=== PATIENT | female | born 1955 | race Caucasian/White ===

== ENCOUNTER 2019-02-14 12:55 | Inpatient (IN) | payer OTHER ==
[2019-02-14] MEDS ORDERED: VANCOMYCIN HCL/NORMAL SALINE 250 ML IV ONE (13:25)
--- NOTE | 2019-02-14 13:29 | EDPHY ---
H & P Stated Complaint: r foot ulcer that is ?infected Time Seen by Provider: 02/14/19 13:06 HPI/ROS: CHIEF COMPLAINT: Right foot infection HISTORY OF PRESENT ILLNESS: 63-year-old female presents with a right foot infection. 5 weeks ago, she sustained a pressure sore on her right foot related to her shoes. Onset foot infection soon after. She has tried multiple antibiotics and has developed allergic reactions to the antibiotics including Keflex, clindamycin and Bactroban. She is also allergic to Bactrim. The allergic reactions consist of hives, no swelling or other symptoms. Associated with severe pain in the right foot. No fever or chills. No drainage from the open wound. Scheduled to see a wound care provider tomorrow. Tetanus is up-to- date. REVIEW OF SYSTEMS: complete 10 point ROS reviewed and is negative except for the noted elements in the HPI - Personal History Current Tetanus Diphtheria and Acellular Pertussis (TDAP): Unsure - Medical/Surgical History Hx Asthma: No Hx Chronic Respiratory Disease: No Hx Diabetes: No Hx Cardiac Disease: No Hx Renal Disease: No Hx Cirrhosis: No Hx Alcoholism: No Hx HIV/AIDS: No Hx Splenectomy or Spleen Trauma: No Other PMH: r knee surg - Social History Smoking Status: Never smoked - Physical Exam Exam: General Appearance: Alert, pleasant and talkative Eyes: Pupils equal and round, no conjunctival pallor or injection ENT, Mouth: Mucous membranes moist Neck: Normal inspection Respiratory: Lungs are clear to auscultation Cardiovascular: Regular rate and rhythm Gastrointestinal: Abdomen is soft and nontender Neurological: A&O, nonfocal, normal gait Skin: Warm and dry Extremities: Right foot-1 cm open wound on the lateral aspect of the foot over the 5th metatarsal with surrounding erythema warmth and tenderness along the lateral aspect of the foot, does not extend up to the ankle Psychiatric: Mood and affect normal Constitutional: Initial Vital Signs Temperature (C) 36.7 C 02/14/19 13:02 Heart Rate 129 H 02/14/19 13:02 Respiratory Rate 17 02/14/19 13:02 Blood Pressure 204/129 H 02/14/19 13:02 O2 Sat (%) 96 02/14/19 13:02 Allergies/Adverse Reactions: cephalexin Allergy (Mild, Verified 02/14/19 14:12) Rash clindamycin Allergy (Mild, Verified 02/14/19 14:12) Rash bacitracin Allergy (Unknown, Verified 02/14/19 14:12) Hives codeine [Codeine] Allergy (Unknown, Verified 02/14/19 14:12) Hives diphenhydramine HCl [From Benadryl] Allergy (Unknown, Verified 02/14/19 14:12) Hives morphine [Morphine] Allergy (Unknown, Verified 02/14/19 14:12) Hives paroxetine HCl [From Paxil] Allergy (Unknown, Verified 02/14/19 14:12) Hives ranitidine HCl [From Zantac] Allergy (Unknown, Verified 02/14/19 14:12) Hives Sulfa (Sulfonamide Antibiotics) Allergy (Unknown, Verified 02/14/19 14:12) Hives Home Medications: Medication Instructions Recorded NK [No Known Home Meds] 02/14/19 Medical Decision Making - Diagnostics Imaging Results: Imaging Impressions Foot X-Ray 02/14/19 13:29 Impression: Mild degenerative change right foot. Possible 3-mm radiopaque foreign body or calcification at the plantar aspect of the foot. ED Course/Re-evaluation: This pt presents with a persistent rt foot cellulitis, severe pain and multiple (possible) allergic rxns to abx. Will admit pt for IV Vancomycin and wound care. She does not meet SIRS criteria and initial lactate is normal. Xray reveals a possible FB foot, though not in location of wound/cellulitis. The hospitalist service was consulted for admission. Differential Diagnosis: includes though not limited to osteomyelitis, abscess, retained FB, fracture - Data Points Medications Given: Discontinued Medications Vancomycin/Sodium Chloride (Vancomycin 1 Gm (Premix)) 250 mls @ 250 mls/hr IV EDNOW ONE PRN Reason: Protocol Stop: 02/14/19 14:24 Last Admin: 02/14/19 14:40 Dose: 250 mls Departure - Departure Disposition: [facility] Acute Clinical Impression: Cellulitis Qualifiers: Site of cellulitis: extremity Site of cellulitis of extremity: lower extremity Laterality: right Qualified Code(s): L03.115 - Cellulitis of right lower limb Condition: Good
[2019-02-14] MEDS ORDERED: ONDANSETRON 4 MG/2 ML VIAL IVP PRN (13:50)
[2019-02-14] MEDS ORDERED: ONDANSETRON DISINTEGRATING 4 MG TAB PO PRN (13:50)
[2019-02-14] MEDS ORDERED: HYDROmorphONE/DILAUDID 1 MG/ML INJ IVP PRN (13:50)
[2019-02-14] MEDS ORDERED: ACETAMINOPHEN 325 MG TAB PO PRN (13:50)
--- NOTE | 2019-02-14 13:53 | PDGENHP ---
History and Physical - Chief Complaint right foot non-healing wound - History of Present Illness 63yo F without known medical problems presents with non-healing right foot wound. Initially developed about 5 weeks ago due to improperly fitting shoes. She noticed a pressure sore at that time. She then noticed some redness start to develop around the wound. She went to urgent care who prescribed keflex. She took this for 4 days but noticed a "rash" on her right foot so stopped taking it. She again went to urgent care who then prescribed clindamycin. She took this for 6 days but then noticed a rash developing on both of her feet and arms so she stopped. This was about a week ago. She comes to the ED today because her foot has been persistently red and it is very painful. She has not noticed any drainage. No fevers or chills. It is very painful. She is being admitted for IV antibiotics and wound care. Case discussed with ED physician Stefani Hightower. I reviewed labs from 02/09/2019. Normal CBC, BMP, LFTs, and TSH. LDL 102. A1c 6.1 %. History Information - Allergies/Home Medication List Allergies/Adverse Reactions: codeine [Codeine] Allergy (Unknown, Verified 02/14/19 12:57) diphenhydramine HCl [From Benadryl] Allergy (Unknown, Verified 02/14/19 12:57) morphine [Morphine] Allergy (Unknown, Verified 02/14/19 12:57) paroxetine HCl [From Paxil] Allergy (Unknown, Verified 02/14/19 12:57) ranitidine HCl [From Zantac] Allergy (Unknown, Verified 02/14/19 12:57) Sulfa (Sulfonamide Antibiotics) Allergy (Unknown, Verified 02/14/19 12:57) bacitracin Allergy (Verified 02/14/19 13:02) cephalexin Allergy (Verified 02/14/19 13:01) clindamycin Allergy (Verified 02/14/19 13:01) Home Medications: NK [No Known Home Meds] 02/14/19 [Last Taken Unknown] I have personally reviewed and updated: family history, medical history, social history, surgical history - Past Medical History Additional medical history: obesity, prediabetes - Surgical History Additional surgical history: right knee surgery - Family History Additional family history: grandfather - diabetes - Social History Smoking Status: Never smoked Alcohol Use: None Drug Use: None Additional social history: Lives with roommate in [place]. Independent in ADLs Review of Systems Review of Systems: ROS: 10pt was reviewed & negative except for what was stated in HPI & below Physical Exam Physical Exam: Temp Pulse Resp BP Pulse Ox 36.7 C 129 H 17 204/129 H 96 02/14/19 13:02 02/14/19 13:02 02/14/19 13:02 02/14/19 13:02 02/14/19 13:02 Constitutional: no apparent distress, appears nourished, not in pain, obese Eyes: PERRL, anicteric sclera, EOMI Ears, Nose, Mouth, Throat: moist mucous membranes, hearing normal, ears appear normal, no oral mucosal ulcers Cardiovascular: regular rate and rhythym, no murmur, rub, or gallop, No edema Peripheral Pulses: 2+: dorsalis-pedis (R) Respiratory: no respiratory distress, no rales or rhonchi, clear to auscultation Gastrointestinal: normoactive bowel sounds, soft, non-tender abdomen, no palpable masses Genitourinary: no bladder fullness, no bladder tenderness Skin: warm, erythema (lateral dorsum of right foot), other (1cm superficial ulcer on lateral right foot) Musculoskeletal: full muscle strength, no muscle tenderness, normal joint ROM, no joint effusions Neurologic: AAOx3 Psychiatric: interacting appropriately, not anxious, not encephalopathic, thought process linear Lab Data & Imaging Review 02/14/19 13:43 02/14/19 13:43 Assessment & Plan Assessment: 63yo F multiple antibiotic allergies presents with non-healing right foot wound. Plan: #Right foot wound with cellulitis: Not septic. - X-rays ordered. I do not think she needs advanced imaging given superficial nature of wound - IV vancomycin (trough goal 10-15) - Wound care consult - If improving tomorrow, consider discharge on PO doxycycline #Elevated BP: This was a BP cuff error. She is normotensive. #Prediabetes: A1c 6.1%. Recommend outpatient surveillance, lifestyle modification. #Obesity: BMI 42. She is wanting to lose >100 pounds. #Hyperlipidemia: LDL 102. Recommend outpatient management. #Multiple drug allergies VTE ppx: low risk, SCDs Code: full Diet: regular Dispo: Admit under observation
[2019-02-14 13:57] LABS: PLATELET COUNT 263 10^3/uL (150-400)
[2019-02-15] MEDS: VANCOMYCIN 1.25 GM in NS 250 ML IV SCH ×2 (02:24→15:49)
[2019-02-15] MEDS: oxyCODONE IR 5 MG TAB PO PRN ×5 (02:27→21:19)
[2019-02-15 04:56] LABS: PLATELET COUNT 207 10^3/uL (150-400)
--- NOTE | 2019-02-15 10:10 | WOCRNPDOC ---
WOCRN Advanced Assessment Note - Skin Integrity Problem, Advanced Assess Right Lateral Dorsal Foot Dressing Type: Open to Air Itzel Wound Tissue: Blanching, Erythema Wound Bed Color: Brown, Red, Yellow Wound Bed Constitution: Mixed Loose & Adhered Slough/Eschar (100%) Site Measurement - Head-to-Toe Length X Width X Depth (cm): 1.2x1x0.1 Skin Integrity Problem Comment: Per patient has had this wound since January 06 due to shoe rubbing. Pt seen by [facility] [place] and was scheuled to visit the Out Patient wound healing center. Contacted OP Wound healing center, next available appointment to be Wednesday 02/21. Instructed patient to call and schedule appointment. Itzel wound skin erythematic though improved from demarkated line. Wound cleaned with ns and gauze. Will initiate moist wound healing with silvasorb. Nancy EWING in room for care.
--- NOTE | 2019-02-15 14:59 | ASMTCMCOM ---
CM Note CM Note Notes: Pt on IV antibiotics for R foot cellulitis. Wound care consulting, PT rec home. CM to follow if pt needs IV antibiotics at d/c. Date Signed: 02/15/2019 02:58 PM Electronically Signed By:SOHAIL Diane
--- NOTE | 2019-02-15 15:04 | HOSPPROG ---
Hospitalist Progress Note Assessment/Plan: 63yo F multiple antibiotic allergies presents with non-healing right foot wound. #Right foot wound with cellulitis: Improving. X-rays without abnormality. - Continue IV vancomycin for additional day - Wound care consulted, appreciate assistance - Possibly switch to PO antibiotics tomorrow and, if tolerating, discharge #Elevated BP: This was a BP cuff error. She is normotensive. #Prediabetes: A1c 6.1%. Recommend outpatient surveillance, lifestyle modification. #Obesity: BMI 42. She is wanting to lose >100 pounds. #Hyperlipidemia: LDL 102. Recommend outpatient management. #Multiple drug allergies VTE ppx: low risk, SCDs Code: full Diet: regular Dispo: Switch to inpatient for ongoing IV antibiotics, hopefully dc tomorrow if clinically improving Subjective: Foot redness a bit better. Still with pain. Tolerated vanco ok. No fevers. Objective: Vital Signs Temp Pulse Resp BP Pulse Ox 36.5 C 94 16 111/61 93 02/15/19 12:14 02/15/19 12:14 02/15/19 12:14 02/15/19 12:14 02/15/19 12:14 Laboratory Results 02/15/19 04:35 02/14/19 13:43 02/14/19 02/15/19 02/16/19 05:59 05:59 05:59 Intake Total 1000 Balance 1000 - Physical Exam Constitutional: no apparent distress, appears nourished, not in pain, obese Eyes: PERRL, anicteric sclera, EOMI Ears, Nose, Mouth, Throat: moist mucous membranes, hearing normal, ears appear normal, no oral mucosal ulcers Cardiovascular: regular rate and rhythym, no murmur, rub, or gallop, edema Respiratory: no respiratory distress, no rales or rhonchi, clear to auscultation Gastrointestinal: normoactive bowel sounds, soft, non-tender abdomen, no palpable masses Genitourinary: no bladder fullness, no bladder tenderness, no renal bruits Skin: other (improvingn erythema dorsum of right foot) Musculoskeletal: full muscle strength, no muscle tenderness, normal joint ROM Neurologic: AAOx3 Psychiatric: interacting appropriately ICD10 Worksheet Patient Problems: Problems Problem Status Onset Cellulitis Acute
--- NOTE | 2019-02-15 15:58 | PDMN ---
Medical Necessity Medical necessity: [facility] [place] M70 cellulitis: failed outpt with ongoing tx needed. 63 yo F with cellulitis of foot starting approx. 5 weeks ago- started Keflex, then clindamycin, then to ED without improvement, foot is very red and painful. status changed to INPT 02/15/19 for ongoing med nec. further monitoring and tx of cellulitis including IV abx ,, wound care > 2 MN>
[2019-02-15] MEDS: METOPROLOL TARTRATE 25 MG TAB PO SCH (21:16)
[2019-02-16] MEDS: VANCOMYCIN 1.25 GM in NS 250 ML IV SCH ×2 (02:40→03:49)
--- NOTE | 2019-02-16 05:55 | CPEKG ---
Test Reason : OPEN Blood Pressure : / mmHG Vent. Rate : 088 BPM Atrial Rate : 108 BPM P-R Int : 133 ms QRS Dur : 094 ms QT Int : 359 ms P-R-T Axes : 000 074 018 degrees QTc Int : 435 ms Atrial fibrillation Low voltage, precordial leads Confirmed by Kevin Guillory ([id number]) on 02/16/2019 5:55:15 AM Referred By: Thierno Samson Confirmed By:Kevin Guillory
[2019-02-16] MEDS: oxyCODONE IR 5 MG TAB PO PRN (06:55)
[2019-02-16] MEDS: METOPROLOL TARTRATE 25 MG TAB PO SCH (08:40)
[2019-02-16] MEDS ORDERED: METOPROLOL TARTRATE 25 MG TAB PO SCH (09:11)
[2019-02-16] MEDS ORDERED: ASPIRIN 81 MG CHEWABLE TAB PO SCH (10:00)
--- NOTE | 2019-02-16 14:05 | ECHO ---
[email or web address] [address] [address] Main: [phone] Echocardiography Examination Transthoracic Name: ANASTASIA BARNARD MR#: [id number] Study Date: 02/16/2019 Study Time: 09:16 AM Date of : 1955 Age: 63 year(s) Height: 172.7 cm (68 in.) Weight: 127.01 kg (280 lb.) BSA: 2.36 m2 Gender: Female Examination: Echo Contrast: Image Quality: Adequate Rhythm: Atrial fibrillation Heart Rate: 105 bpm BP: 139 mmHg/87 mmHg Indication: New onset of Atrial Fibrillation Procedure Staff Referring Physician: Pressure Dispatcher: Anirudh Griffin RDCS Reading Physician: Jefry Melgar MD Requesting Provider: Ordering Physician: Thierno Samson Indication: New onset of Atrial Fibrillation Measurements Chambers AV/MV Label Value Normal Value Label Value Normal Value LVOT Vmax 0.59 m/s (0.7m/s - 1.1m/s) AV PGmax 4 mmHg LVOTd 2 cm (1.8cm - 2cm) AV PGmean 3 mmHg LVOT PGmax 1 mmHg AV Vmax 1.05 m/s LVDd, 2D 5 cm (3.9cm - 5.3cm) KRISTOFER (Vmax) 1.8 cm2 LVDs, 2D 3.3 cm (2.1cm - 4cm) KRISTOFER (VTI) 1.9 cm2 IVSd, 2D 0.9 cm (0.6cm - 1.1cm) MV E Vmax 0.74 m/s LVPWd, 2D 1.1 cm MV E/E' lateral 6 LVEF, 2D 64 % (54% - 74%) MV E/E' septal 9.3 (0.45 - 1.25) LVOT PGmean 1 mmHg MV E' septal 0.08 m/s LVOT Vmean 0.4 m/s MV E' lateral 0.12 m/s EF lower range (%) 60 % MV E/E' mean 7.4 EF upper range (%) 65 % MV E' mean 0.1 m/s RVDd, 2D 2.9 cm (1.9cm - 3.8cm) TV/PV LADs, 2D 4 cm (2.7cm - 3.8cm) Label Value Normal Value Additional Vessels RA Pressure 5 mmHg Label Value Normal Value RVSP 35 mmHg AoRoot, MM 2.4 cm (2.2cm - 3.7cm) TR Pmax 30 mmHg TR Vmax 2.74 m/s PV PGmax 3 mmHg Patient: ANASTASIA BARNARD Study Date: 02/16/2019 Page 1 of 2 09:16 AM PV Vmax, Caliper 0.83 m/s (0.6m/s - 0.9m/s) Conclusions (1) Left ventricular systolic ejection fraction was normal (60-65%) - normal wall motion (2) Normal RV size and function (3) Normal atrial dimensions (borderline RA dilation) (4) Grossly normal mitral valve (5) Trileaflet aortic valve (6) Normal tricuspid valve - RVSP was 35 mm Hg (7) Normal aortic dimensions (8) No pericardial effusion Findings Left Ventricle: Left ventricle is normal in size. Normal global systolic left ventricular function. EF range is estimated at 60 % - 65 %. Left ventricle wall thickness is normal. Cannot determine LAP and Diastolic Dysfunction Grade. Right Ventricle: Normal size right ventricle. Right ventricular systolic function is normal. Left Atrium: The left atrium is normal in size. Right Atrium: The right atrium is normal in size. Mitral Valve: No mitral regurgitation. No mitral valve stenosis. Aortic Valve: Aortic leaflets are normal in appearance and function. No aortic valve regurgitation. There is no aortic stenosis. Tricuspid Valve: Tricuspid valve leaflets are normal in appearance and function. No significant tricuspid regurgitation. Right Ventricular systolic pressure is measured at 35 mmHg. Pulmonic Valve: Pulmonic leaflets are normal in appearance and function. No pulmonic valve regurgitation is evident. Aorta: The aorta is normal. The aortic root size in M-mode measures 2.4 cm. Aorta Measurements AoRoot, MM is 2.4 cm. Pericardium: The pericardium is normal in appearance. A pericardial fat pad is present. Exam Details Procedure Ordered: Echo Procedure Status: Routine study Image Quality: Adequate Facility Location: Cardiac Echo 1 (No Signature Object) Patient: ANASTASIA BARNARD Study Date: 02/16/2019 Page 2 of 2 09:16 AM [id number]
[2019-02-16 15:50] VITALS: BP 112/66
--- NOTE | 2019-02-16 16:44 | PDDCSUM ---
Discharge Summary Discharge Summary: Date of Admission: 02/14/2019 Date of Discharge: 02/16/2019 Studies: right foot x-ray, TTE Discharge Diagnoses: 1. Right foot wound with adjacent cellulitis 2. Atrial fibrillation (new diagnosis) 3. Obesity (BMI 42) 4. Prediabetes (A1c 6.1%) 5. Hyperlipidemia (LDL 102) Brief Hospital Course: 63yo F presented with non-healing right foot wound with surrounding cellulitis. She first developed a pressure wound on the lateral aspect of dorsal right foot approximately 5 weeks ago after wearing poorly fitting shoes. She developed a rash to two antibiotics prescribed in the outpatient setting so she presented to the ED. An x-ray was unremarkable. She was treated with IV vancomycin with clinical improvement. She was not septic. She was transitioned to PO doxycycline. Wound care team provided local wound management to the superficial wound. She has an orthotic shoe. She was noted to be intermittently tachycardic. An ECG showed atrial fibrillation. This is a new diagnosis for her. An echocardiogram was normal. She was started on metoprolol and this was uptitrated with adequate rate control. Her [id number] score is 1 and she was started on aspirin 81mg for stroke prophylaxis. Case was discussed with cardiology - she was provided information on obtaining a [employer] cardiac rn to quantify burden of afib. She was not electrically cardioverted due to concerns of her ability/ willingness to reliably take systemic anticoagulation after such a procedure; additionally, it is unclear how long she has been in afib. Medications: Please refer to EMR for complete list. New medications include metoprolol 25mg BID, aspirin 81mg daily, and doxycycline 100mg BID X5 more days. Follow Up Plan: 1. Cardiology clinic with Dr Jefry Melgar after she completes cardiac rn 2. Wound care clinic 3. Outpatient sleep study Physical Exam: Alert and oriented, no focal deficits, irregularly irregular with controlled rates, lungs clear, abdomen soft, no leg edema or JVD.
--- NOTE | 2019-02-16 17:08 | ASDISCHSUM ---
Discharge Information Plan Status:Home with No Needs Medically Cleared to Leave:02/16/2019 Discharge Date:02/16/2019 CM D/C Disposition:Home, Routine, Self-Care ADT D/C Disposition:Home, Routine, Self-Care Projected Discharge Date:02/16/2019 Transportation at D/C:Family Discharge Delay Reason: Follow-Up Date:02/16/2019 Discharge Slot: Final Diagnosis:cellulitis Placement Information Patient Contact Information Contact Name:NATTY Relationship:Kenny Address: Work Phone: City: [facility] Phone: State/[place] Code: Email: Financial Information Financial Class:Medicare Advantage Plans Primary Plan Desc:[facility] Primary Plan Number:[id number] Secondary Plan Desc: Secondary Plan Number: Assessment Information LACE LACE Length of stay for Answers: 2 days current admission Acuity / Level of Answers: Yes Care: Did the patient have an inpatient admission? Comorbidities - select Answers: Opioid dependence all that apply / Chronic pain Other Notes: Pre-diabetes # of Emergency department Answers: 1-2 visits in the last 6 months Score: 11 Date Signed: 02/16/2019 05:08 PM Electronically Signed By:Liset Uriostegui [facility] CM Progress Note CM Note CM Note Notes: Pt on IV antibiotics for R foot cellulitis. Wound care consulting, PT rec home. CM to follow if pt needs IV antibiotics at d/c. Date Signed: 02/15/2019 02:58 PM Electronically Signed By:SOHAIL Diane Case Management Discharge Plan Note Case Management Discharge Discharge Order Complete? Answers: Yes Patient to Obtain Answers: Independently Medications Transportation Arranged Answers: Family/Friends Transport will Pick (Date 02/16/2019 12:00 AM & Time) Family Notified Answers: No Notes: pt communicating with family Discharge Comments Notes: Pt to discharge home independently and is comfortable with this plan. CM spoke with RN and with pt in the room. Therapies cleared pt for home. No CM needs noted at this time. Date Signed: 02/16/2019 05:07 PM Electronically Signed By:Liset Uriostegui Intervention Information
[2019-02-16] MEDS ORDERED: DOXYCYCLINE HYCLATE 100 MG CAP/TAB PO SCH (21:00)
== END 2019-02-16 18:19 | disposition home or self-care (01) | DRG 593 ==
LOC: F3E 14:47 → OBSVTOIN 02-15 15:04
PROVIDERS: ADMIT Internal Medicine; ATTEND Internal Medicine
DX: L89.899 Pressure ulcer of other site, unspecified stage (principal); L03.115 Cellulitis of right lower limb; R73.03 Prediabetes; E78.5 Hyperlipidemia, unspecified; I48.91 Unspecified atrial fibrillation; E66.9 Obesity, unspecified; Z68.41 Body mass index [BMI] 40.0-44.9, adult
CPT/HCPCS: 96365; 97161-GP; G0378; J3370

== ENCOUNTER 2019-04-20 08:24 | Day surgery (SDC) | payer OTHER | END 2019-04-20 11:45 | disposition home or self-care (01) | LOC: FCATH 08:24 ==

== ENCOUNTER 2019-04-22 07:48 | Emergency (ER) | payer OTHER | END 2019-04-22 10:00 | disposition home or self-care (01) | LOC: CED 07:48 ==

== ENCOUNTER 2019-04-29 09:34 | Day surgery (SDC) | payer OTHER | END 2019-04-29 14:15 | disposition home or self-care (01) | LOC: FCATH 09:34 ==